=== PATIENT | female | born 1995 | race Caucasian/White ===

== ENCOUNTER 2019-04-29 13:52 | Emergency (ER) | payer SELFPAY ==
--- NOTE | ~2019-04-29 | US_ITS ---
EXAMINATION: US right upper quadrant EXAM DATE: 04/29/2019 15:39 INDICATION: Right upper quadrant pain, vomiting. TECHNIQUE: Multiple grayscale and Doppler images of the abdomen right upper quadrant were obtained (b y a technologist who performed the scan) and subsequently reviewed. There is no prior study for fausto crowder. FINDINGS: The pancreatic head and body are normal in appearance. The pancreatic tail is not visualized. The l iver has normal echogenicity and contour. There are no focal liver lesions identified. There is no evidence of intrahepatic biliary duct dilation. Portal venous flow was seen in the hepatopedal, nor mal direction and has normal Doppler waveform. No right-sided hydronephrosis. Common bile duct measures 3 mm, which is normal. The gallbladder wall is normal in thickness, with ex pected amount of distention. No sonographic evidence of pericholecystic fluid. There is cholelithia sis. Technologist reports patient did have tenderness overlying the gallbladder. IMPRESSION: 1. Cholelithiasis. Otherwise normal exam. 2. Technologist did report right upper quadrant tenderness. Reviewed, dictated and finalized at location A. TION WORKER
[2019-04-29 14:09] VITALS: BP 124/88; PULSE 63; RESP 19; TEMP 36.7; O2SAT 97
[2019-04-29 14:34] LABS: Basophils Percent Auto 0.3 % (0.2-1.2); Eosinophils Percent Auto 0.4 % (0-4.4); Hematocrit 41.5 % (37.0-47.0); Hemoglobin 12.9 g/dL (12.0-15.0); Immature Granulocyte Absolute 0.04 K/mm3 (0.00-0.031); Immature Granulocyte Percent A 0.4 % (0-0.5); Immature Platelet Fraction Pct 11.5 % (0.9-11.2); Lymphocytes Absolute Auto 1.81 K/mm3 (0.9-3.2); Lymphocytes Percent Auto 18.2 % (18.3-44.2); Mean Corpuscular HGB Conc 31.1 g/dl (32-36); Mean Corpuscular Volume 80.6 fl (80-100); Monocytes Absolute Auto 0.6 K/mm3 (0.1-0.6); Monocytes Percent Auto 6.1 % (2.6-8.5); Neutrophils Absolute Auto 7.4 K/mm3 (1.3-6.7); Neutrophils Percent Auto 74.6 % (45.5-73.1); Platelet Count Result 181 k/mm3 (150-375); Red Blood Count 5.15 M/mm3 (4.2-5.4); Red Cell Distribution Width 15.5 % (11.5-14.5); White Blood Count 9.9 K/mm3 (4.5-10.0)
[2019-04-29 14:47] LABS: Alanine Aminotransferase 36 U/L (4-35); Albumin Level 4.9 g/dL (3.5-5.1); Alkaline Phosphatase 100 U/L (38-126); Aspartate Amino Transferase 22 U/L (14-36); Bilirubin,Total 0.3 mg/dL (0.2-1.3); Blood Urea Nitrogen 19 mg/dL (7-17); Calcium 9.8 mg/dL (8.4-10.2); Carbon Dioxide 20 mmol/L (22-30); Chloride 104 mmol/L (98-107); Estimated CRCL calculation 136 ml/min; Estimated Glomerular Filt Rate > 60; Glucose 104 mg/dL (65-105); Lipase 111 U/L (23-300); Potassium 3.7 mmol/L (3.4-5.0); Sodium 137 mmol/L (137-145)
[2019-04-29 15:08] LABS: Add Urine Microscopic? NO; Appearance Urine Clear (Clear); Bilirubin Urine Negative (Negative); Blood Urine Negative (Negative); Color Urine Yellow (Yellow); Glucose Urine UA Negative (Negative); Ketones Urine Negative (Negative); Leukocyte Esterase Ur Negative LEU/UL (Negative); Nitrate Urine Negative (Negative); Protein Urine Negative (Negative); Urobilinogen Urine Negative mg/dL (<2.0)
[2019-04-29 15:13] LABS: Specific Grav Ur 1.035 (1.001-1.035)
--- NOTE | 2019-04-29 15:31 | ED.ABDPAIN ---
HPI - Abdominal Pain General Chief Complaint: Abdominal Pain Stated Complaint: abdominal pain Time Seen by Provider: 04/29/19 14:57 Source: patient Mode of arrival: ambulatory Limitations: no limitations History of Present Illness HPI narrative: Patient is a 21-year-old female who presents to the emergency department with complaint of abdominal pain. Patient reports onset of symptoms at approximately 3:00 this morning. Patient locates the pain in the upper abdomen/right upper quadrant with radiation into her back. Patient states she was previously diagnosed with gallstones a [facility]. Patient reports nausea and vomiting. She denies any diarrhea. Patient denies any urinary symptoms or fever. MD elicited complaint: abdominal pain Onset (ago): hour(s) Pain Consistency: constant Location: epigastric and RUQ Radiation: back Exacerbating factors: movement and other (Deep breath) Associated symptoms: nausea and vomiting Related Data Allergies Allergy/AdvReac Type Severity Reaction Status Date / Time adhesive tape Allergy Unknown Rash Verified 05/08/17 18:54 latex Allergy Unknown Verified 05/16/16 16:08 Penicillins Allergy Unknown Verified 05/16/16 16:09 Review of Systems Review of Systems: All systems reviewed & are unremarkable except as noted in HPI and below Constitutional: Constitutional: Denies fever(s) Gastrointestinal: Gastrointestinal: Reports abdominal pain, Denies diarrhea, Reports nausea and Reports vomiting Genitourinary: Genitourinary: Reports abnormal menses (Irregular, uncertain date of last menstrual) and Denies dysuria Musculoskeletal: Musculoskeletal: Reports back pain PMFSH Past Medical History Medical History (Updated 04/29/19 @ 16:43 by Marifer Sneed MD) ADHD Anxiety Bipolar depression Schizophrenia Surgical History Surgical History (Updated 04/29/19 @ 15:39 by Marifer Sneed MD) History of adenoidectomy History of appendectomy History of left knee surgery History of tonsillectomy Family History Family History (Updated 05/16/16 @ 16:11 by DOCTOR UNKNOWN) Mother Hypertension Other Diabetes mellitus Social History Social History Smoking status: Current every day smoker Alcohol intake: never Gender identity (if verbalized by the patient): Female Course Course Emergency Course: Patient feeling better after Bentyl, Zofran, acetaminophen, and IV fluids. Patient with findings of cholelithiasis without cholecystitis. Patient appropriate for outpatient management and follow-up with surgeon. Counseled on low-fat diet. Consultations Consultation #1: Case discussed with Dr. Daily who can follow-up as an outpatient. Date: 04/29/19 Time: 16:38 Vital Signs Vital signs: Vital Signs Temperature 98.0 F 04/29/19 14:09 Pulse Rate 63 04/29/19 14:09 Respiratory Rate 19 04/29/19 14:09 Blood Pressure 124/88 04/29/19 14:09 Pulse Oximetry 97 04/29/19 14:09 Temperature 98.0 F 04/29/19 14:09 Pulse Rate 63 04/29/19 14:09 Respiratory Rate 19 04/29/19 14:09 Blood Pressure 124/88 04/29/19 14:09 Pulse Oximetry 97 04/29/19 14:09 MDM - Abdominal Pain Lab Data Attestation: I reviewed the patient's lab results. Result diagrams: 04/29/19 14:22 04/29/19 14:23 Labs: Lab Results 04/29/19 04/29/19 04/29/19 Range/Units 14:22 14:23 14:50 WBC 9.9 (4.5-10.0) K/mm3 RBC 5.15 (4.2-5.4) M/mm3 Hgb 12.9 (12.0-15.0) g/dL Hct 41.5 (37.0-47.0) % MCV 80.6 (80-100) fl MCH 25.0 L (26-34) pg MCHC 31.1 L (32-36) g/dl RDW 15.5 H (11.5-14.5) % Plt Count 181 (150-375) k/mm3 MPV TNP Immature Gran % (Auto) 0.4 (0-0.5) % Neut % (Auto) 74.6 H (45.5-73.1) % Lymph % (Auto) 18.2 L (18.3-44.2) % Jay % (Auto) 6.1 (2.6-8.5) % Eos % (Auto) 0.4 (0-4.4) % Baso % (Auto) 0.3 (0.2-1.2) % Lymph # (Auto) 1.81 (0.9-3.2) K/mm3 Jay #
[2019-04-29] MEDS: LACTATED RINGERS 1,000 ML 999 ML IV CONT (16:04)
[2019-04-29] MEDS: ONDANSETRON INJ 4 MG/2 ML VIAL IV PUSH (16:05)
[2019-04-29] MEDS: DICYCLOMINE HCL INJ 20 MG/2 ML VIAL IM (16:05)
[2019-04-29 17:06] VITALS: BP 132/87; PULSE 78; RESP 18; O2SAT 98
--- NOTE | 2019-05-03 12:00 | PC.NURSE ---
LATE ENTRY This note is being entered to document information to the patient's record. The following information was omitted on [04/29/2019], by [Paulette Reddy]. Patient's LR stop time was 1705
== END 2019-04-29 17:07 | disposition home or self-care (01) ==
PROVIDERS: Emergency Provider Emergency Medicine
DX: K80.20 Calculus of gallbladder without cholecystitis without obstruction (principal); F17.200 Nicotine dependence, unspecified, uncomplicated
CPT/HCPCS: 36415; 76705; 80053; 81003; 81025; 83690; 85025; 85055; 96361; 96372; 96374; 96375; 99284; J0131; J0500; J2405; J7120

== ENCOUNTER 2023-08-10 18:42 | Emergency (ER) | payer MEDICAID, SELFPAY ==
[2023-08-10 18:54] VITALS: BP 144/106; PULSE 113; RESP 20; TEMP 36.6; O2SAT 98
--- NOTE | 2023-08-10 19:10 | ED.FEMALEGU ---
HPI - Female Genitourinary General Chief complaint: Urogenital-Female Stated complaint: Stomach Pain and STD Testing Time Seen by Provider: 08/10/23 19:10 Source: patient Mode of arrival: ambulatory Limitations: no limitations History of Present Illness HPI Narrative: Leila is a 27-year-old female patient presenting to clinic today with complaints of possible STD/lower stomach pain. She is complaining of some lower stomach pain and spotting. Reports that a few days ago she had a D&C completed. States that her significant other with contacted by another past partner and stated that she was positive for chlamydia. Patient is wanting to be tested/treated for chlamydia in the clinic today. Related Data Allergies Allergy/AdvReac Type Severity Reaction Status Date / Time adhesive tape Allergy Unknown Rash Verified 08/10/23 18:54 latex Allergy Unknown rash Verified 08/10/23 18:54 Penicillins Allergy Unknown rash and Verified 08/10/23 18:54 throat swelling Review of Systems Review of Systems: Pertinent positives per HPI. Patient denies any fever, chills, rash, headache, visual changes, dizziness, cough, runny nose, sore throat, shortness of breath, chest pain, palpitations, nausea, vomiting, diarrhea, constipation, , or any urinary issues. PMFSH Past Medical History Medical History (Updated 08/10/23 @ 19:12 by Brennan Garcia APRN) ADHD Anxiety Bipolar depression Schizophrenia Surgical History Surgical History (Updated 04/29/19 @ 15:39 by Marifer Sneed MD) History of adenoidectomy History of appendectomy History of left knee surgery History of tonsillectomy Family History Family History (Updated 05/16/16 @ 16:11 by DOCTOR UNKNOWN) Mother Hypertension Other Diabetes mellitus Social History Social History Smoking status: Current every day smoker Alcohol intake: never Gender identity (if verbalized by the patient): Female Comments At the time of my signature, I reviewed and agree with the nursing past medical, surgical, social, and family history. There is no relevant family history pertinent to the patient complaint. Exam Narrative: General: Well-developed, well nourished, in no apparent distress Head: Normocephalic, atraumatic. Cardio: Regular rate and rhythm, s1 and s2 normal, no murmur appreciated. Resp: Clear to auscultation bilaterally, no rhonchi, rales, wheezing or rubs. Abdomen: Soft, pliable, bowel sounds present in all quadrants, non-tender to palpation, no CVAT tenderness. : Pelvic exam performed with (Cami NIEVES) at bedside. Verbal consent obtained from patient. Normal external female genitalia without lesions or masses, Urinary meatus: patent without discharge, Vagina: No lesions, masses, or discharge, Cervix: pink without mass, lesions, scant light green discharge Adnexa: without palpable mass or mild right adnexa tenderness Course Course Emergency Course: Portions of this record may have been created with voice recognition software. Level of Care: Express Care Visit Vital Signs Vital signs: Vital Signs Temperature 36.6 C 08/10/23 18:54 Pulse Rate 113 H 08/10/23 18:54 Respiratory Rate 20 08/10/23 18:54 Blood Pressure 144/106 H 08/10/23 18:54 Pulse Oximetry 98 08/10/23 18:54 Oxygen Delivery Room Air 08/10/23 18:54 Temperature 36.6 C 08/10/23 18:54 Pulse Rate 113 H 08/10/23 18:54 Respiratory Rate 20 08/10/23 18:54 Blood Pressure 144/106 H 08/10/23 18:54 Pulse Oximetry 98 08/10/23 18:54 Oxygen Delivery Room Air 08/10/23 18:54 Vital signs reviewed MDM - Female Genitourinary MDM Narrative Medical decision making narrative: At the time of visit patient is resting comfortably on the exam table. Patient appears to be nontoxic. Labs: Chlamydia, gonorrhea, and Trichomonas testing was sent to the lab Plan: Will treat the patient for chlamydia-doxycycline prescription was sent to [facility]
[2023-08-11 19:54] LABS: Trichomonas Vag PCR NOT DETECTED (NOT DETECTE)
[2023-08-11 20:21] LABS: Chlamydia trachomatis DETECTED (NOT DETECTE); Neisseria gonorrhoeae PCR NOT DETECTED (NOT DETECTE)
== END 2023-08-10 19:45 | disposition home or self-care (01) ==
PROVIDERS: Emergency Provider Nurse Practitioner Family
DX: A74.9 Chlamydial infection, unspecified (principal)
CPT/HCPCS: 87070; 87491; 87591; 87661; 99214; G0463

== ENCOUNTER 2023-10-16 08:02 | Emergency (ER) | payer BC, SELFPAY ==
[2023-10-16 08:13] VITALS: BP 133/88; PULSE 98; RESP 16; TEMP 36.6; O2SAT 100
--- NOTE | 2023-10-16 08:19 | ED.GENADULT ---
HPI - General Adult General Chief complaint: CLINICAL RESEARCH NURSE COORDINATOR Stated complaint: /Back Pain Time Seen by Provider: 10/16/23 08:20 Source: patient, RN notes reviewed and old records reviewed Mode of arrival: ambulatory Limitations: no limitations History of Present Illness HPI narrative: 28 year old female who presents to [facility] care with complaints of having positive test at [facility] 2 weeks ago and was at that estimated to be 6 weeks . Patient reports last night she had bad back pain and cramping and passed some large clots and dark tissue in toilet and continues to have some vaginal bleeding this morning. Patient reports that initially her vaginal bleeding was heavy but has decreased with small amount of vaginal bleeding presently. Patient reports that he has had miscarriages in past but never this early in . patient reports that she walked here to clinic she lives 2 blocks away. She states that significant other is at work but he does show up here at clinic prior to patient being discharged. MD complaint: possible miscarriage Onset (ago): day(s) (last pm at 1030) Severity scale (1-10): 2 Treatments prior to arrival: none Related Data Home Medications Medication Instructions Recorded Confirmed No Home Medications 08/23/23 08/23/23 Allergies Allergy/AdvReac Type Severity Reaction Status Date / Time adhesive tape Allergy Unknown Rash Verified 08/23/23 14:40 latex Allergy Unknown rash Verified 08/23/23 14:40 Penicillins Allergy Unknown rash and Verified 08/23/23 14:40 throat swelling Review of Systems Review of Systems: CONSTITUTIONAL: Denies fever, chills, or sweats. EYES: Denies visual changes, redness, or discharge. ENT: Denies rhinorrhea, congestion, sore throat, or otalgia. CARDIOVASCULAR: Denies chest pain, palpitations, or edema. RESPIRATORY: Denies cough or dyspnea. GASTROINTESTINAL: Reports some abdominal cramping,no nausea, vomiting, or diarrhea. GENITOURINARY: Denies dysuria or hematuria. SKIN: Denies rash or itching. MUSCULOSKELETAL: Reports lower back pain,no joint pain, or myalgia. NEUROLOGIC: Denies headache, numbness, or weakness. PSYCHIATRIC: Reports history of anxiety or depression. All systems reviewed & are unremarkable except as noted in HPI and below PMFSH Past Medical History Medical History (Updated 10/16/23 @ 08:39 by Geeta Flores NP) ADHD Anxiety Bipolar depression Encounter for removal and reinsertion of intrauterine contraceptive device Schizophrenia Surgical History Surgical History History of adenoidectomy History of appendectomy History of left knee surgery History of tonsillectomy Hx of cholecystectomy Family History Family History Mother Hypertension Other Diabetes mellitus Social History Social History (Updated 10/16/23 @ 10:02 by Geeta Flores NP) Smoking status: Former smoker Additional smoking assessment comments: states quit 2 years ago, does vape non nicotine Alcohol intake: never Substance use type: does not use Do You Feel Safe in your Home?: Yes Lack of Transportation: YES Lack of Food: Sometimes True Current Housing: I Have Housing Concerned About Future Housing: No Difficulty Paying Gas/Electric Bills: No Difficulty Paying for Meds: No Currently Unemployed: No Education: Grade School Difficulty w/ Childcare or Family Care: No Gender identity (if verbalized by the patient): Female Comments At time of signature, agree with nursing past medical, surgical, social and family history. There is no relevant family history pertinent to the presenting complaint Exam Narrative: GENERAL: Well-appearing, well-nourished, and in no acute distress. HEAD: Normocephalic, atraumatic. EYES: PERRLA and EOMI. ENT: Nares clear, no rhinorrhea or epistaxis. Mucous membranes mois
== END 2023-10-16 08:43 | disposition home or self-care (01) ==
PROVIDERS: Emergency Provider Registered Nurse
DX: O02.1 Missed abortion (principal); Z87.891 Personal history of nicotine dependence
CPT/HCPCS: 99211; G0463

== ENCOUNTER 2024-04-17 18:59 | Emergency (ER) | payer BC, SELFPAY ==
[2024-04-17 19:07] VITALS: BP 112/74; PULSE 96; RESP 20; TEMP 36.8; O2SAT 100
--- NOTE | 2024-04-17 20:00 | ED.GENADULT ---
HPI - General Adult General Chief complaint: Ear Stated complaint: Ear Pain Source: patient Mode of arrival: ambulatory Limitations: no limitations History of Present Illness HPI narrative: Patient presents for evaluation of left-sided ear pain. Symptom onset 5 days ago. No fever, chills, nausea, vomiting, cough, shortness of breath, drainage from the ear, tinnitus. She does report muffled hearing on the left and it feels like she is ?underwater?. She has a history of otitis media on the right. She had a test performed last night which was positive. Date of LMP unknown. She has a history of irregular menstruation. She denies pelvic/abdominal pain or vaginal bleeding. Related Data Allergies Allergy/AdvReac Type Severity Reaction Status Date / Time adhesive tape Allergy Unknown Rash Verified 04/17/24 19:33 latex Allergy Unknown rash Verified 04/17/24 19:33 Penicillins Allergy Unknown rash and Verified 04/17/24 19:33 throat swelling Review of Systems Review of Systems: CONSTITUTIONAL: Denies fever, chills, or sweats. EYES: Denies visual changes, redness, or discharge. ENT: Reports left ear pain, muffled hearing on left and sensation that she is ?underwater? Denies rhinorrhea, congestion, sore throat, or otalgia. CARDIOVASCULAR: Denies chest pain, palpitations, or edema. RESPIRATORY: Denies cough or dyspnea. GASTROINTESTINAL: Denies abdominal pain, nausea, vomiting, or diarrhea. GENITOURINARY: Denies dysuria or hematuria. SKIN: Denies rash or itching. MUSCULOSKELETAL: Denies back pain, joint pain, or myalgia. NEUROLOGIC: Denies headache, numbness, dizziness, or weakness. PSYCHIATRIC: Denies anxiety or depression. [facility] Past Medical History Medical History Encounter for removal and reinsertion of intrauterine contraceptive device ADHD Schizophrenia Bipolar depression Anxiety Surgical History Surgical History Hx of cholecystectomy History of left knee surgery History of adenoidectomy History of tonsillectomy History of appendectomy Family History Family History Mother Hypertension Other Diabetes mellitus Social History Social History Smoking status: Former smoker Additional smoking assessment comments: states quit 2 years ago, does vape non nicotine Alcohol intake: never Substance use type: does not use Do You Feel Safe in your Home?: Yes Lack of Transportation: YES Lack of Food: Sometimes True Current Housing: I Have Housing Concerned About Future Housing: No Difficulty Paying Gas/Electric Bills: No Difficulty Paying for Meds: No Currently Unemployed: No Education: Grade School Difficulty w/ Childcare or Family Care: No Gender identity (if verbalized by the patient): Female Exam Narrative: GENERAL: Well-appearing, well-nourished, and in no acute distress. HEAD: Normocephalic, atraumatic. EYES: PERRLA and EOMI. ENT: Nares clear, no rhinorrhea or epistaxis. Mucous membranes moist. Oropharynx without tonsillar hypertrophy exudate or other lesions. Left TM is bulging. NECK: Supple. No adenopathy or masses. No carotid bruits or JVD CHEST: Clear to auscultation. No respiratory distress. No wheezes rales or rhonchi HEART: Regular rate and rhythm. No murmur heard. Normal peripheral pulses. ABDOMEN: Soft, nontender, nondistended, normal active bowel sounds. EXTREMITIES: Normal range of motion. No edema. SKIN: Warm, dry, no rash. NEURO: No focal deficits. Alert and oriented x3. PSYCH: Normal mood and affect. Course Course Emergency Course: This is a 28-year-old female who presented for evaluation of left-sided ear pain. She has evidence of otitis media on exam. Will avoid amoxicillin and other penicillin products due to penicillin allergy. Will also avoid cephalosporins due to throat swelling with penicillin products. We discussed available therapies in opted to proceed with Levaquin based upon available data. She was advised to follow up with PCP and to establish care with OBGYN for care. Increase hydration. [id number] agents for symptom management. Follow up with primary provider. Go to the ER for worsening symptoms. Patient in agreement with plan of care. Level of Care: Express Care Visit Vital Signs Vital signs: Vital Signs Temperature 36.8 C 04/17/24 19:07 Pulse Rate 96 04/17/24 19:07 Respiratory Rate 20 04/17/24 19:07 Blood Pressure 112/74 04/17/24 19:07 Pulse Oximetry 100 04/17/24 19:07 Oxygen Delivery Room Air 04/17/24 19:07 Temperature 36.8 C 04/17/24 19:07 Pulse Rate 96 04/17/24 19:07 Respiratory Rate 20 04/17/24 19:07 Blood Pressure 112/74 04/17/24 19:07 Pulse Oximetry 100 04/17/24 19:07 Oxygen Delivery Room Air 04/17/24 19:07 Medical Decision Making Vital Signs Vital Signs: Vital Signs Temperature 36.8 C 04/17/24 19:07 Pulse Rate 96 04/17/24 19:07 Respiratory Rate 20 04/17/24 19:07 Blood Pressure 112/74 04/17/24 19:07 Pulse Oximetry 100 04/17/24 19:07 Oxygen Delivery Room Air 04/17/24 19:07 Temperature 36.8 C 04/17/24 19:07 Pulse Rate 96 04/17/24 19:07 Respiratory Rate 04/17/24 19:07 Blood Pressure 112/74 04/17/24 19:07 Pulse Oximetry 100 04/17/24 19:07 Oxygen Delivery Room Air 04/17/24 19:07 Discharge Plan Discharge Clinical Impression: Acute otitis media, left Patient Disposition: Home, Self-Care Condition: Stable Instructions: Antibiotic Form, Ear Infection (ED) Additional Instructions: IF YOU HAVE ABDOMINAL PAIN OR VAGINAL BLEEDING, PLEASE GO TO THE ER Patient Language: Ukrainian Prescriptions: New levofloxacin 500 mg tablet 500 mg PO DAILY Qty: 10 0RF Follow-up/Referrals: Fawn Grimaldo DO [Physician] - Time of Disposition: 20:05
--- OUTSIDE RECORDS SUMMARY | 2024-04-19 03:33 | XMS_ITS | CONTINUITY OF CARE DOCUMENT ---
Author Name pavithra, pavithra Address Unknown Organization [facility] Address [address] [place] [address] Phone [phone] Care Team Providers Care It Systems Analyst Name Role Phone Kvng MOORE, Reji Unavailable MELA MOORE, RUNDA Unavailable [phone] Reji Calderon MD Unavailable [phone] PROBLEMS Condition Status Date Provider Notes Sleep apnea active Reji Calderon MD Bradycardia - sinus active Reji Calderon MD Obesity - Morbid active Reji Calderon MD Family History of Hypertension: active Perfecto Calderon MD Dizziness active Reji Calderon MD Palpitations--nl echo with nl ef 10/2020 active 10/19 Reji Calderon MD Snoring active Reji Calderon MD Near Syncope active Reji Calderon MD Chest pain--normal routine stress 10/2020 active 11/24 Reji Calderon MD ENCOUNTERS Date Type Provider Location Encounter Diagnosis - In-person encounter Office Visit Reji Calderon MD [facility] - In-person encounter [facility] Visit [facility] - In-person encounter [facility] Visit [facility] - In-person encounter Office Visit Reji Calderon MD [facility] Palpitations--nl echo with nl ef hest pain--normal routine stress 10/2020 - In-person encounter Office Visit Reji Calderon MD [place] Family History of Hypertension:Dizzi nessPalpitations-- nl echo with nl ef noringNear Syncope VITAL SIGNS Date Observation Value Provider Body Mass Index (Ratio) 43.34 kg/m2 Perfecto Calderon MD blood pressure, cuff size large Ke rri Eliza blood pressure, diastolic 60 mm[Hg] Ke rri Eliza blood pressure, systolic 110 mm[Hg] Julia Kay oxygen saturation, oximetry 97 % Shelly Kay respiratory rate E&M 16 /min Shelly villanueva pulse rate 90 /min Shelly Roldan er weight E&M 237 [lb_av] Shelly Yuli er height E&M 62 [in_i] Shelly Yuli er weight E&M 234 [lb_av] Cleve kidd Body Mass Index (Ratio) 42.79 kg/m2 Perfecto Calderon MD blood pressure, diastolic 58 mm[Hg] Shweta nkLogkhris blood pressure, systolic 88 mm[Hg] Porsche Mannogkhris blood pressure, diastolic 58 mm[Hg] Amie Collins blood pressure, systolic 88 mm[Hg] Madonna Collins oxygen saturation, oximetry 96 % Kiley Collins respiratory rate E&M 16 /min Rima Collins pulse rate 76 /min Kiley munguia weight E&M 234 [lb_av] Kiley munguia height E&M 62 [in_i] Kiley munguia ALLERGIES Allergy Name Onset Date Reaction Criticality Status ADHESIVE ADHESIVE TAPE Low Criticali ty active FISH High Criticality active PENICILLIN High Criticality active HISTORY OF MEDICATION USE Medication Status Instructions Dates Provider Indications Com ments indomethacin 50 mg capsule completed Take 1 capsule by mouth once a day with meals 1 - 4 Rosas Corbett SOCIAL HISTORY Date Observation Value Provider social history reviewed E&M revi ewed - no changes required Rosas Corbett social history reviewed E&M revi ewed - no changes required Rosas Corbett social history E&M Smoking Histo ry: P atient currently smokes every day. Rosas Corbett social history reviewed E&M revi ewed - no changes required Rosas Corbett social history E&M S moking History: P atient currently smokes every day. Rosas Corbett social history reviewed E&M revi ewed - no changes required Rosas Corbett number of years as a smoker 12 a Shelly Eliza cigarette use yes Shelly Shu martin smoking status Current every day smoker K erika Kay social history E&M S moking History: P atient currently smokes every day. Rosas Corbett social history reviewed E&M revi ewed - no changes required Rosas Corbett number of years as a smoker 12 a Kiley Collins cigarette use yes Kiley larson smoking status Current every day smoker M Yajaira Collins FAMILY HISTORY Family Member Condition Mother Family History of Co ronary Artery Disease: Mother Family History of Hy pertension: Mother Family History of Di abetes: INSURANCE PROVIDERS Payer name Policy type / Coverage type Cyndee red green party ID [employer] Medicaid [id number] ADVANCE DIRECTIVES Name Date DISCUSSED - NO DECISION MADE TREATMENT PLAN Date Name Performer [id number],S, Rosas Ahmedza i [id number],S, Rosas Ahmedza i [id number],S, Rosas Ahmedza i [id number],S, Rosas Ahmedza i [id number],S, Rosas Ahmedza i [id number],W, Reji Calderon MD [id number],S, Rosas Ahmedza i [id number],S, Rosas Ahmedza i [id number],S, Rosas Ahmedza i [id number],S, Rosas Ahmedza i [id number],W, Rosas Ahmedza i Cardiology Rosas Ahmedzai Cardiology Rosas Ahmedzai Cardiology Rosas Ahmedzai Cardiology Rosas Ahmedzai Cardiology Rosas Ahmedzai Cardiology Reji Calderon MD Cardiology Rosas Ahmedzai Cardiology Rosas Ahmedzai Cardiology Rosas Ahmedzai Cardiology Rosas Ahmedzai Cardiology Reji Calderon MD Date Name Holter Monitor 48 hr Sleep Study Home Complete Echo Stress Routine HISTORY OF PROCEDURES Procedure Date Procedure Name Provider Procedure Notes S tatus EKG Reji Calderon MD completed
--- OUTSIDE RECORDS SUMMARY | 2024-04-19 03:33 | XMS_ITS | Continuity of Care Document ---
Author Organization [facility] Address [address] [place] [address] [address] [place] [address] Phone Care Team Providers Care General Intern Name Role Phone Sanderson OD, Nick Unavailable Unavailable Procedures Procedure Date Eye Exam, New Patient Advance Directives Directive Yes / No Effective Date File Name No Information Encounters Encounter Description Practice Location Reason(s) For Visit Diagnoses Date Provider Providers Copied on Encounter [facility], [address], [place], [place], [id number], [place] tel:[phone] [facility] No Information 5-200 7 Sanderson OD Nick. [address], [place], [address], [place]. tel:[phone] Family History Family Member Type Diagnosis Age At Onset No Information Payers Payer name Insurance type Covered green party ID Authoriza tion(s) Medicaid [facility] [id number] Social History Type Description Quantity Date Captured Comments Sex Female Smoking Status No Information Chief Complaint And Reason For Visit No Information Reason For Referral Reason For Referral No Information History Of Present Illness Encounter Date Complaint History Of Prese nt Illness No Information Functional Status Date Functional Assessmen t No Information Instructions Date Instruction Additional Infor mation No Information Assessments Type Assessment Date No Information Patient Care Teams Name Effective Dates (start - stop) Status Members No Information
--- OUTSIDE RECORDS SUMMARY | 2024-04-19 03:33 | XMS_ITS | Continuity of Care Document ---
Author Organization [facility] Address [address] [place] [address] [address] [place] [address] Phone Care Team Providers Care Combiner Name Role Phone Sanderson OD, Nick Unavailable Unavailable Procedures Procedure Date Eye Exam, New Patient Advance Directives Directive Yes / No Effective Date File Name No Information Encounters Encounter Description Practice Location Reason(s) For Visit Diagnoses Date Provider Providers Copied on Encounter [facility], [address], [place], [place], [id number], [place] tel:[phone] [facility] No Information 5-200 7 Sanderson OD Nick. [address], [place], [address], [place]. tel:[phone] Family History Family Member Type Diagnosis Age At Onset No Information Payers Payer name Insurance type Covered democrat ID Authoriza tion(s) Medicaid [facility] [id number] Social History Type Description Quantity Date Captured [...]
--- OUTSIDE RECORDS SUMMARY | 2024-04-19 03:33 | XMS_ITS | CONTINUITY OF CARE DOCUMENT ---
Author Name pavithra, pavithra Address Unknown Organization [facility] Address [address] [place] [address] Phone [phone] Care Team Providers Care Director Of Trauma Name Role Phone Kvng MOORE, Reji Unavailable MELA MOORE, RUNDA Unavailable [phone] Reji Calderon MD Unavailable [phone] PROBLEMS Condition Status Date Provider Notes Sleep apnea active Reji Calderon MD Bradycardia - sinus active Reji Calderon MD Obesity - Morbid active Reji Calderon MD Chest pain--normal routine stress 10/2020 active 11/24 Reji Calderon MD Near Syncope active Reji Calderon MD Snoring active Reji Calderon MD Palpitations--nl echo with nl ef 10/2020 active 10/19 Reji Calderon MD Dizziness active Reji Calderon MD Family History of Hypertension: active Perfecto Calderon MD ENCOUNTERS Date Type Provider Location Encounter Diagnosis - In-person encounter Office Visit Reji Calderon MD [facility] - [facility] encounter [facility] - [facility]-person encounter [facility] - In-person encounter Office Visit Reji Calderon MD [facility] Palpitations--nl echo with nl ef hest pain--normal routine stress 10/2020 - In-person encounter Office Visit Reji Calderon MD [facility] Family History of Hypertension:Dizzi nessPalpitations-- nl [...] Policy type / Coverage type Cyndee red alliance party ID [employer] Medicaid [id number] ADVANCE DIRECTIVES Name Date DISCUSSED - NO DECISION MADE TREATMENT PLAN Date Name Performer [id number],S, Rosas Ahmedza i [id number],S, Rosas Ahmedza i [id number],S, Rosas Ahmedza i [id number],S, Rosas Ahmedza i [id number],S, Rosas Ahmedza i [id number],W, Reji Calderon MD [id number],S, Rosas Ahmedza i [id number],S, Rosas Ahmedza i [id number],S, Rosas Ahmedza i [id number],S, Rossa Ahmedza i [id number],W, Rosas Ahmedza i Cardiology Rosas Ahmedzai Cardiology [...]
== END 2024-04-17 20:09 | disposition home or self-care (01) ==
PROVIDERS: Emergency Provider Nurse Practitioner
DX: O99.891 Other specified diseases and conditions complicating pregnancy (principal); Z3A.00 Weeks of gestation of pregnancy not specified; H66.92 Otitis media, unspecified, left ear; Z87.891 Personal history of nicotine dependence
CPT/HCPCS: 99213; G0463